=== PATIENT | male | born 2005 | race Caucasian/White ===

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

== ENCOUNTER 2023-08-28 22:04 | Emergency (ER) | payer BC, SELFPAY ==
--- NOTE | 2023-08-28 22:07 | ED.GENADUL_ITS ---
Discharge Plan Disposition Patient Disposition: Home Discharge Details Clinical Impression: Acute pain of right wrist Primary Care Provider: Varsha,Local ED Provider: Hussain Rubio Discharge Instructions Additional Instructions: You were seen in the emergency department for your wrist pain. As we discussed, your x-rays showed no sign of any acute fractures. You most likely have sprained your wrist. Please wear this removable wrist brace for the next severa l days to ensure that your wrist is protected in the event that there is a subtle fracture that your x-ray missed. Please follow-up with your bilingual trainer at school for reassessment. You may benefit from either a repeat x-ray, reexamination, or even possibly an MRI if you have symptoms that do not improve with rest. Please ice your wrist for 20 minutes on 20 minutes off for the next 24 hours. Please return to the emergency department if you lose sensation in your hand or develop any significant swelling or have any other concerns. For your pain please take medications as follows: 1. Take acetaminophen (Tylenol), 1,000 mg (two 500 mg tabs) every 6 hours 2. Take ibuprofen (Advil), 400 mg every 6 hours. HPI General Date/Time Provider Initiated Documentation: 08/28/23 22:07 . HPI Narrative: MDM This is an overall very well-appearing normothermic and not tachycardic left-h and-dominant 17-year-old male with left ulnar styloid pain tenderness concerning for the possibility of fracture given mechanism. Patient did strike his head however not been nauseous nor vomiting and based on [place] CT head rules no indication for CT head. No neck tenderness to suggest cervical spinal fracture. No pain out of proportion to suggest necrotizing soft tissue infection. Right hand warm well perfused so I am not concerned for critical limb ischemia so I do not feel that the patient requires a CT angiogram. No fluctuance to suggest abscess. Based on the patient's age my suspicion is low for Salter-Zaldivar I fracture. No erythema to suggest cellulitis. Based on the patient's participation in basketball if plain films are negative for any acute osseous abnormalities will plan on immobilizing patient's right wrist in a removable wrist brace to ensure that a subtle fracture is protected. N/A Anticipate that if patient does not have any obvious osseous abnormalities on x-ray that he will be able to follow-up in the next several days for either repeat plain films or clinical reassessment. If his pain resolves with embolization and he most likely has suffered a brain. If he has persistent pain despite immobilization he may or may not benefit from additional imaging such as repeat x-rays, CT scan or even an MRI to assess for subtle ligamentous injuries. For now we will treat with acetaminophen and ibuprofen for analgesia and will also apply ice. 11 PM Right wrist radiographs show no acute findings. We will proceed with plan for temporary wrist immobilization with removable Velcro wrist brace and reassessment later this week. [place] Head CT Criteria Major Criteria GCS < 15 : [No] Open or depressed skull Fx: [No] Sign of Basilar Skull Fx: [No] > 2 Episodes Vomiting: [No] Anticoagulation: [No] Age > 65: [No] Minor Criteria Retrograde Amnesia >30min: [No] Dangerous Mechanism: [No] Per [place] head CT rules, CT head not obtained. The patient had a GCS of 15, no open/depressed skull fracture, no signs of basilar skull fracture (hemotympanum, raccoon eyes, fu's sign, CSF [place]/Rhinorrhea), no vomiting, and is less than 65 years of age. Chronic conditions affecting the care of the patient: N/A History obtained from an outside historian: N/A External record review: No [facility] [place] Medications: Acetaminophen ibuprofen Social determinants of health affecting disposition: N/A Management discussed with: N/A Treatment/interventions considered: N/A Response to therapies provided: N/A HPI This is a previously healthy left-handed 17-year-old male up-to-date with immunizations and not on any outpatient medicines arrived to the emergency department via private vehicle in the setting of pain in his right wrist. Patient reports that at approximately 6 PM this evening he was in a basketball game when his legs were taken out from under him. He fell and landed on his right wrist. He complains of pain at his right ulnar styloid. He did not notice any lacerations. He has not taken any pain medicines yet. He has been icing. He was able to play the remainder of the game. He dribbled with his left hand. He did strike his head but he has not been nauseous vomiting and he did not lose consciousness. He denies any fevers chills chest pain shortness of breath. He has been ambulatory since his injury. No prior injuries to this right wrist. Exam General: Well-appearing in no acute distress speaking in complete sentences. Head: Normocephalic, atraumatic. Eye: Extraocular eye movements intact. No conjunctival injection. No scleral icterus. Ear, nose, mouth, throat: Grossly normal inspection. Normal voice, handling secretions normally. No hemotympanum bilaterally. Neck: Trachea midline. Cardiovascular: Well-perfused distal extremities. Respiratory: Nonlabored respiration. Gastrointestinal: Nondistended abdomen. Musculoskeletal: Right wrist with no obvious signs of trauma. Right hand warm and well-perfused with less than 2-second capillary refill and 2+ right radial pulse. Patient has slightly limited ability to flex and extend at the right wrist secondarily to pain. No fluctuance. No erythema. Patient has tenderness over his right ulnar styloid. He is able to supinate but has pain when attempting to fully supinate. Skin: Normal for age and race, grossly normal temperature and turgor. No acute rash. Neurologic: Alert and appropriate, no apparent acute deficits. Psychiatric: Mood and manner are appropriate. Grooming and personal hygiene are appropriate. General RANCHO: 3 PFSH All Active Problems (Updated 08/29/23 @ 01:03 by Hussain Rubio MD) Acute pain of right wrist (Acute) Social History Smoking/Tobacco Use Status: Never Smoking risk assessment performed?: Yes Alcohol Intake: never Substance use type: does not use Do you feel safe at home: Yes Do you feel safe in your relationship?: Yes
[2023-08-28 22:11] VITALS: BP 124/56; PULSE 83; RESP 14; TEMP 36.8; O2SAT 98
--- NOTE | 2023-08-28 22:15 | DI.RAD_ITS ---
Exam(s) XR WRIST RT COMPLETE EXAM: XR WRIST RT COMPLETE CLINICAL HISTORY: Right wrist pain. TECHNIQUE: 2D digital imaging was performed of the right wrist. Three views were obtained. PA, lat eral and oblique views were obtained. COMPARISON: No exams were available for comparison FINDINGS: BONES: No acute fracture is present. No bony destructive lesion is seen. JOINTS: The carpal bones are normally aligned. SOFT TISSUE: Normal. IMPRESSION: Unremarkable radiographs of the right wrist. DATA REPOSITORY: RADIATION DOSE DELIVERED:
[2023-08-28] MEDS: Acetaminophen 500 MG TAB 1000 MG PO (22:25)
[2023-08-28] MEDS: Ibuprofen 600 MG TAB PO (22:25)
--- NOTE | 2023-08-28 22:59 | DI.VRAD_ITS ---
PROCEDURE INFORMATION: Exam: XR Right Wrist Exam date and time: 08/28/2023 10:28 PM Age: 17 years old Clinical indication: Injury or trauma; Fall; Blunt trauma (contusions or hematomas); Right; Injury date: 3; Injury details: Fell on wrist during basketball TECHNIQUE: Imaging protocol: Radiologic exam of the right wrist. Views: 3 or more views. COMPARISON: No relevant prior studies available. FINDINGS: Bones/joints: Normal. Soft tissues: Normal. IMPRESSION: No acute findings. Dictated and Authenticated by: Eva Greer MD. Ordering:ANGY Nixon MD
== END 2023-08-28 23:09 | disposition home or self-care (01) ==
PROVIDERS: Emergency Provider Emergency Medicine
DX: M25.531 Pain in right wrist (principal); S00.80XA Unspecified superficial injury of other part of head, initial encounter; W18.39XA Other fall on same level, initial encounter; Y93.67 Activity, basketball; Y92.39 Other specified sports and athletic area as the place of occurrence of the external cause
CPT/HCPCS: 99283; 73110

== ENCOUNTER 2024-11-08 17:31 | Emergency (ER) | payer BC, SELFPAY ==
[2024-11-08 17:48] VITALS: BP 117/75; PULSE 86; RESP 16; TEMP 36.6; O2SAT 97
--- NOTE | 2024-11-08 18:10 | DI.RAD_ITS ---
Exam(s) XR ANKLE LT COMPLETE EXAM: XR ANKLE LT COMPLETE CLINICAL HISTORY: L ankle injury TECHNIQUE: 2D digital imaging was performed. Three views. COMPARISON: CR,XR XR ANKLE RT COMPLETE from 11/14/2022 CR,XR XR WRIST RT COMPLETE from 08/28/2023 FINDINGS: BONES: No acute fracture is present. No bony destructive lesion is seen. Lateral malleolar fixation plate in place. Smoothly marginated density adjacent to the talus. JOINTS:The ankle mortise is normally aligned. SOFT TISSUE: Mild soft tissue swelling around the malleoli. IMPRESSION: Soft tissue swelling. No evidence of fracture. DATA REPOSITORY: RADIATION DOSE DELIVERED:
--- NOTE | 2024-11-08 18:58 | DI.VRAD_ITS ---
PROCEDURE INFORMATION: Exam: XR Left Ankle Exam date and time: 11/08/2024 6:07 PM Age: 18 years old Clinical indication: Pain; Left; L ankle injury TECHNIQUE: Imaging protocol: Radiologic exam of the left ankle. Views: 3 or more views. COMPARISON: No relevant prior studies available. FINDINGS: Bones/joints: There is a plate and screws at the distal aspect of the left fibula, which appear intact. The ankle mortise is well aligned and well maintained without degenerative changes. Osseous mineralization is normal. There are no inflammatory osseous erosive changes. The plantar arch is maintained. There are no acute displaced fractures or subluxations. Soft tissues: There is mild soft tissue swelling around the lateral malleolus. IMPRESSION: No acute displaced fractures or subluxations identified. Dictated and Authenticated by: Hussain Hu MD. Orderin Prince Cerna MD
--- NOTE | 2024-11-08 19:11 | W.ED.GENAD ---
Discharge Plan Disposition Patient Disposition: Home Condition: Stable Discharge Details Clinical Impression: Sprain of left ankle Primary Care Provider: Varsha,Local ED Provider: Nehemiah Morrison Home Meds and New Rx's Prescriptions: No Action No Known Home Meds Discharge Instructions Instructions: Ankle Sprain ED Additional Instructions: You were seen in the emergency department for the sprain of your left ankle suffered on a basketball game. There is no evidence of fracture around any of your hardware everything appears in place without any signs of fracture at all on x-ray. Please rest, ice, compress and elevate the ankle often, please use therapeutic dosing of Tylenol (acetamenophen) & Advil (ibuprofen) in an alternating fashion as follows: Take 1000mg of Tylenol every 6 hours without missing doses- that is 4 times per day. Jail in between the Tylenol dosings, take 400-600mg of Advil also on a 6 hour schedule, that is also 4 times per day. The daily maximum dosing of Tylenol is 4000mg, and the daily maximum dosing of Advil is 2400mg. This is safe to do for weeks. Please note that some common cold medications & prescription pain medications may contain acetamenophen and you need to read OTC drug labels and factor that in to maximum daily dosings. Follow-up with orthopedics for persistent pain, return for any emergent concerns Referrals: [facility] [Provider Group] Discharge Data Discharge Date/Time-TO BE ENTERED AT DEPARTURE: 11/08/24 19:20 HPI General Date/Time Provider Initiated Documentation: 11/08/24 17:54. HPI Narrative: 18 year-old male presents to ED today by POV/ambulating with a chief complaint of fall during a basketball game with L ankle pain and history of plates/screws to this area with onset about 1 hour [employer]. Quality described as L lateral ankle pain- R-side dominant, no radiation to numbness/tingling, bruising, endorses swelling, denies calf pain/swelling, no fibular head pain. Severity is described as moderate. Palliating factors include APAP/NSAID with mild relief. Provoking factors include ambulating. Patient not anticoagulated. Related Data Home Medications ?Medication ?Instructions ?Recorded ?Confirmed Unknown [No Known Home Meds] 11/08/24 11/08/24 Allergies Allergy/AdvReac Type Severity Reaction Status Date / Time No Known Allergies Allergy Unverified 11/08/24 17:51 General Stated Complaint: Orthopedic RANCHO: 3 Review of Systems All systems reviewed & are unremarkable except as noted in HPI and below Exam Narrative Exam Narrative: GENERAL APPEARANCE: Well-nourished, non-toxic, awake and alert, atraumatic, no acute distress. SKIN: Warm, pink, dry, intact, without rashes/lesions/ulcerations. HEAD: Normocephalic, atraumatic, normal hair distribution for gender/age. EYES: Normal conjunctiva, no exudates on lids/lashes. ENT: Nares patent, no circumoral cyanosis, no facial swelling NECK: Supple, trachea midline, painless cervical ROM. LUNGS/CHEST: Non-labored respirations, normal A/P diameter, symmetrical expansion, no chest wall deformity HEART (CV/PV): Regular rate, L dorsalis pedis pulse 2+, no peripheral edema, no JVD. ABDOMEN: Soft, non-distended, no guarding. MSK: Normal ROM, no swelling/deformity to bilateral UEs or LEs, moving all extremities without weakness, no cyanosis, spine midline without tenderness, normal curvature, L lateral malleolar swelling without crepitus/ecchymosis, sensation intact, dorsi/plantarflexion intact NEURO: Mental Status AAOx4 - alert to person, place, time, events No facial droop, no forehead involvement. Motor: No focal weakness - strength 5/5 in bilateral UEs and LEs, proximal and distal, symmetric. Sensory: sensation intact to light touch globally. Gait antalgic. PSYCH: euthymic, cooperative, pleasant, appropriate speech Course Vital Signs Vital signs: Vital Signs Temperature 36.6 C 11/08/24 17:48 Pulse 86 11/08/24 17:48 Respiratory Rate 16 11/08/24 17:48 Blood Pressure 117/75 11/08/24 17:48 Pulse Oximetry 97 11/08/24 17:48 Temperature 36.6 C 11/08/24 17:48 Temperature Source Oral 11/08/24 17:48 Pulse 86 11/08/24 17:48 Respiratory Rate 16 11/08/24 17:48 Blood Pressure 117/75 11/08/24 17:48 Blood Pressure Position Sitting 11/08/24 17:48 Pulse Oximetry 97 11/08/24 17:48 Oxygen Delivery Method Room Air 11/08/24 17:48 Oxygen Flow Rate 0 11/08/24 17:48 Pain Level 4 11/08/24 17:48 Medical Decision Making This dictation utilizes [id number] dictation software and may contain unedited grammatical errors. 18 year-old male presents to ED today by POV/ambulating with a chief complaint of fall during a basketball game with L ankle pain and history of plates/screws to this area with onset about 1 hour [employer]. Quality described as L lateral ankle pain- R-side dominant, no radiation to numbness/tingling, bruising, endorses swelling, denies calf pain/swelling, no fibular head pain. Severity is described as moderate. Palliating factors include APAP/NSAID with mild relief. Provoking factors include ambulating. Patients' medical history: history of ORIF to the right use of left fibula. Family and social history: plays basketball, regular exercise. Pertinent exam findings / vital signs include L lateral malleolar swelling, no crepitus, no ecchymosis, sensation intact, dorsi-plantarflexion intact, L dorsalis pedis pulse 2+. Differential / pathologies of concern include fracture, contusion, sprain. Diagnostic studies of: -XR L Ankle - no acute fracture, hardware intact. Interventions of: -RICE therapy recommended. ED Course/Assessment/Plan: 18-year-old male had a fall during basketball game and has left ankle pain with history of an ORIF to this area, has no fracture on x-ray and hardware appears intact, counseled on sprain care and RICE therapy as well as therapeutic dosing Tylenol and ibuprofen recommend orthopedic evaluation for persistent pain, strict return criteria for signs of neurovascular compromise. Findings not consistent with fracture, NV compromise. Disposition of Sprain of Left Ankle. Patient verbalized understanding of the plan and return to ED criteria and engaged in shared decision making. Medical Records Medical records reviewed: Yes I reviewed the patient's medical records. Imaging Data Radiologic Study: Attestation: I personally reviewed and interpreted this imaging study as follows: Imaging: X-Ray Radiologist's impression: Exam: XR Left Ankle Exam date and time: 11/08/2024 6:07 PM Age: 18 years old Clinical indication: Pain; Left; L ankle injury TECHNIQUE: Imaging protocol: Radiologic exam of the left ankle. Views: 3 or more views. COMPARISON: No relevant prior studies available. FINDINGS: Bones/joints: There is a plate and screws at the distal aspect of the left fibula, which appear intact. The ankle mortise is well aligned and well maintained without degenerative changes. Osseous mineralization is normal. There are no inflammatory osseous erosive changes. The plantar arch is maintained. There are no acute displaced fractures or subluxations. Soft tissues: There is mild soft tissue swelling around the lateral malleolus. IMPRESSION: No acute displaced fractures or subluxations identified. Dictated and Authenticated by: Hussain Hu MD. Quality:SDOH Health Related Social Needs: No Data to Display PFSH All Active Problems (Updated 11/08/24 @ 19:14 by LALA Sanchez) Sprain of left ankle (Acute) Social History Smoking/Tobacco Use Status: Never Smoking risk assessment performed?: Yes Alcohol Intake: never Drug use: Never Substance use type: does not use Housing: house Do you feel safe at home: Yes Do you feel safe in your relationship?: Yes Additional Social history: mom/dad at side
[2024-11-08 19:19] VITALS: BP 132/66; PULSE 64; RESP 16; O2SAT 99
== END 2024-11-08 19:20 | disposition home or self-care (01) ==
PROVIDERS: Emergency Provider Physician Assistant
DX: S93.402A Sprain of unspecified ligament of left ankle, initial encounter (principal); X50.1XXA Overexertion from prolonged static or awkward postures, initial encounter; Y93.67 Activity, basketball; Y92.310 Basketball court as the place of occurrence of the external cause
CPT/HCPCS: 99283; 73610

== ENCOUNTER 2025-06-18 18:08 | Outpatient (REF) | payer BC, SELFPAY ==
--- NOTE | 2025-06-18 18:30 | DI.RAD_ITS ---
Exam(s) XR CHEST 2V PA LATERAL EXAM: XR CHEST 2V PA LATERAL CLINICAL HISTORY: eval pna R05.9. TECHNIQUE: 2D digital imaging was performed. COMPARISON: No exams were available for comparison FINDINGS: 2 views: Heart size is normal. The mediastinum is not widened. Lungs are clear. No infiltrates nor pleural effusions. IMPRESSION: No acute pulmonary findings. DATA REPOSITORY: RADIATION DOSE DELIVERED:
--- NOTE | 2025-06-18 19:36 | DI.VRAD_ITS ---
PROCEDURE INFORMATION: Exam: XR Chest Exam date and time: 06/18/2025 6:30 PM Age: 19 years old Clinical indication: Cough and other: Eval pna TECHNIQUE: Imaging protocol: Radiologic exam of the chest. Views: 2 views. COMPARISON: No relevant prior studies available. FINDINGS: Lungs: The lungs are clear. No consolidative radiopacities. Pleural spaces: No pleural effusion. No pneumothorax. Heart/Mediastinum: The heart is normal size. Bones/joints: Unremarkable. IMPRESSION: No acute cardiopulmonary findings. Dictated and Authenticated by: Komal Mcguire MD. Orderin Kathya Lara MD
== END 2025-06-18 18:28 ==
LOC: DI 18:08
PROVIDERS: Visit Provider Nurse Practitioner Family
DX: R05.9 Cough, unspecified (principal)
CPT/HCPCS: 71046

== ENCOUNTER 2025-09-09 11:06 | Emergency (ER) | payer BC, SELFPAY ==
[2025-09-09 11:22] VITALS: BP 117/62; PULSE 62; RESP 20; TEMP 37.1; O2SAT 98
--- NOTE | 2025-09-09 12:04 | DI.RAD_ITS ---
Exam(s) XR WRIST LT COMP NAVICULAR EXAM: XR WRIST LT COMP NAVICULAR CLINICAL HISTORY: Pain at snuffbox from [facility] 1 month ago. TECHNIQUE: 2D digital imaging was performed. COMPARISON: CR,XR XR WRIST RT COMPLETE from 08/28/2023 FINDINGS: Four views No evidence of acute fracture or dislocation nor significant ulnar variance. Scaphoid and scapholunate distance are unremarkable. There are no degenerative changes in the wrist. No erosions. No radiopaque foreign bodies. Bone density normal. No osseous lesions. IMPRESSION: No significant radiograph findings in the wrist. No scaphoid fracture identified DATA REPOSITORY: RADIATION DOSE DELIVERED:
--- NOTE | 2025-09-09 12:41 | W.ED.GENAD ---
Discharge Plan Disposition Patient Disposition: Home Condition: Good Discharge Details Clinical Impression: Left wrist sprain Primary Care Provider: Unknown,Unknown ED Provider: Nehemiah Gonzalez Home Meds and New Rx's Prescriptions: No Action albuterol sulfate 90 mcg/actuation HFA aerosol inhaler 2 puff inhalation Q6H PRN (Reason: shortness of breath or wheezing) Qty: 6.7 0RF Discharge Instructions Instructions: Common Wrist Injuries ED Additional Instructions: At this time there is no evidence of fracture in your wrist. Please wear the splint for the next 2 to 3 months. If after this prolonged conservative therapy you still have persistent pain and discomfort, you may need an MRI of the wrist on a nonemergent outpatient basis. Please apply topical Voltaren gel to the wrist to help with the pain. You can do this every 6-8 hours. If you notice any worsening of your symptoms, or any new symptoms such as vomiting, diarrhea, fever, chills, shortness of breath, chest pain, numbness, weakness, or fainting , please return immediately to the emergency department for reevaluation. Please follow up with your primary care provider as soon as possible for reassessment and reevaluation. As always, it was a pleasure participating in your medical care today. Stand Alone Forms: Portal Information Discharge Data Discharge Date/Time-TO BE ENTERED AT DEPARTURE: 09/09/25 13:02 HPI General Date/Time Provider Initiated Documentation: 09/09/25 11:24. HPI Narrative: This is a pleasant 19-year-old male with past medical history of asthma who is left-hand dominant who plays basketball who presents today for left wrist pain for the last month. About 1 month ago the patient was playing basketball and fell down with a FOOSH onto his left hand. He rested it for the next few weeks, and had notable improvement however it appears he may have had increased use or potential reinjury within the past week or so, and subsequently has significant pain in the left lateral wrist and at the base of the first metacarpal. Pain is made worse with bench pressing, push-ups, and basketball/activity. He denies any numbness or tingling. He denies any other trauma. No other complaints at this time. Related Data Home Medications ?Medication ?Instructions ?Recorded ?Confirmed albuterol sulfate 90 mcg/actuation 2 puff inhalation Q6H PRN 09/18/25 09/18/25 aerosol inhaler shortness of breath or wheezing #6.7 grams Previous Rx's ?Medication ?Instructions ?Recorded albuterol sulfate 90 mcg/actuation 2 puff inhalation Q6H PRN 06/18/25 aerosol inhaler shortness of breath or wheezing #6.7 grams Allergies Allergy/AdvReac Type Severity Reaction Status Date / Time No Known Allergies Allergy Unverified 06/18/25 17:20 General Stated Complaint: Orthopedic RANCHO: 4 Exam Narrative Exam Narrative: 1.Const: Well-nourished, Well-developed, appearing stated age 2.Eyes: PERRL, no conjunctival injection, and symmetrical lids. 3.ENT: Atraumatic external nose and ears. Moist MM. Neck: Symmetric, trachea midline, No thyromegaly. 4.CVS: +S1/S2, Peripheral pulses 2+ and equal in all extremities. Brisk capillary refill in all extremities. 5.RESP: Unlabored respiratory effort. Clear to auscultation bilaterally. No wheezes rales or rhonchi 6.GI: Soft, Nontender/Nondistended, No hepatosplenomegaly. No guarding or rebound. 7.MSK: Normocephalic/Atraumatic, Extremities w/o deformity. No cyanosis or clubbing, Normal movement of all extremities Left wrist: Patient demonstrates mild tenderness of the anatomic snuffbox of the left wrist, mild tenderness at the base of the first metacarpal. Symmetrically palpable radial and ulnar pulses. Capillary refill less than 2 seconds to all digits. Intact sensation to light touch of the radial, median and ulnar nerves demonstrated by testing in the dorsal web space of the thumb, the distal palmar aspect of the index finger, and the lateral surface of the fifth finger. 2 point discrimination intact to 5mm (up to 6mm can be normal in digits 3-5) of discrimination in the affected digit. Intact motor function of the radial, median and ulnar nerves demonstrated by strength of extension of the isolated distal joint of the index finger, hand senior technical specialist, and spreading of the 2nd through 5th digits. Intact recurrent median nerve as demonstrated by ability to move thumb fully through opposition, abduction and flexion. 8.Skin: Warm, Dry. No rashes or lesions. 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 Sensation grossly intact, no focal neurologic deficits. 10.Psych: (AAO) x3. Appropriate mood and affect Course Vital Signs Vital signs: Vital Signs Temperature 37.1 C 09/09/25 11:22 Pulse 62 09/09/25 11:22 Respiratory Rate 20 09/09/25 11:22 Blood Pressure 117/62 09/09/25 11:22 Pulse Oximetry 98 09/09/25 11:22 Temperature 37.1 C 09/09/25 11:22 Pulse 62 09/09/25 11:22 Respiratory Rate 20 09/09/25 11:22 Blood Pressure 117/62 09/09/25 11:22 Blood Pressure Position Sitting 09/09/25 11:22 Pulse Oximetry 98 09/09/25 11:22 Oxygen Delivery Method Room Air 09/09/25 11:22 Oxygen Flow Rate 0 09/09/25 11:22 Medical Decision Making This is a pleasant 19-year-old male with past medical history of asthma who is left-hand dominant who plays basketball who presents today for left wrist pain for the last month. About 1 month ago the patient was playing basketball and fell down with a FOOSH onto his left hand. He rested it for the next few weeks, and had notable improvement however it appears he may have had increased use or potential reinjury within the past week or so, and subsequently has significant pain in the left lateral wrist and at the base of the first metacarpal. Pain is made worse with bench pressing, push-ups, and basketball/activity. He denies any numbness or tingling. He denies any other trauma. No other complaints at this time. Exam demonstrates mild tenderness at the left anatomic snuffbox and the base of the first metacarpal. Differential includes scaphoid fracture, contusion, or ligamentous injury. Will get an x-ray, monitor closely and reassess. X-ray negative for acute fracture, or scaphoid fracture. Suspect potential ligamentous etiology. Will give thumb spica splint for continued support. Recommend continued supportive therapy for the next 2 to 3 months, NSAIDs as needed, and potential MRI or repeat imaging if symptoms persist even after conservative therapy. Discussed red flags for which to return. I have extensively reviewed the treatment plan and discharge instructions with the patient. I have addressed all patient concerns at this time. The patient was made aware of what symptoms to monitor for that would warrant a return to the emergency department. Discussed the plan with the patient, they demonstrate verbal understanding and agreement with our assessment and plan at this time. The documentation in this chart was dictated using [employer] dictation software. Please excuse any dictation errors. FINDINGS: Four views No evidence of acute fracture or dislocation nor significant ulnar variance. Scaphoid and scapholunate distance are unremarkable. There are no degenerative changes in the wrist. No erosions. No radiopaque foreign bodies. Bone density normal. No osseous lesions. IMPRESSION: No significant radiograph findings in the wrist. No scaphoid fracture identified PFS All Active Problems (Updated 09/09/25 @ 12:45 by Nehemiah Gonzalez DO) Left wrist sprain (Acute) Social History Smoking/Tobacco Use Status: Never Smoking risk assessment performed?: Yes Alcohol Intake: never Drug use: Never Substance use type: does not use Housing: house Do you feel safe at home: Yes Do you feel safe in your relationship?: Yes Additional Social history: mom/dad at side
== END 2025-09-09 13:02 | disposition home or self-care (01) ==
PROVIDERS: Emergency Provider Student in an Organized Health Care Education/Training Program
DX: S63.502A Unspecified sprain of left wrist, initial encounter (principal); Y93.67 Activity, basketball
CPT/HCPCS: 99283 ×2; 73110